=== PATIENT | female | born 2000 | race Caucasian/White ===

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

== ENCOUNTER 2019-01-21 14:46 | Emergency (ER) | payer MEDICAID ==
[~2019-01-21] VITALS: Ht 165.1 cm; Wt 95.3 kg
[2019-01-21 14:52] VITALS: BP_SYST 16; BP_SYST 162
[2019-01-21 15:54] LABS: BASOPHILS % (AUTO) 0.1 % (0.0-2.0); EOSINOPHILS # (AUTO) 0.1 K/uL (0.0-0.4); EOSINOPHILS % (AUTO) 0.7 % (0.0-4.0); HEMATOCRIT 37.2 % (36-48); LYMPHOCYTES % (AUTO) 10.6 % (20.5-51.5); MEAN CORPUSCULAR HEMOGLOBIN 21 pg (27-31); MEAN CORPUSCULAR HGB CONC 32 % (32-36); MEAN CORPUSCULAR VOLUME 66 fL (79.0-98.0); MONOCYTES # (AUTO) 0.7 K/uL (0.0-1.0); MONOCYTES % (AUTO) 7.2 % (1.7-9.3); NEUTROPHILS # (AUTO) 7.4 K/uL (1.8-7.7); NEUTROPHILS % (AUTO) 81.4 % (40.0-70.0); PLATELET COUNT (AUTO) 195 K/uL (130-430); RED BLOOD CELL COUNT(AUTO) 5.68 MIL/uL (4.2-6.2); RED CELL DISTRIBUTION WIDTH 15.1 % (9.0-15.0); WHITE BLOOD COUNT (AUTO) 9.1 K/uL (4.5-11.0)
[2019-01-21 16:38] LABS: CALCIUM 8.9 mg/dL (8.4-11.0)
[2019-01-21 17:26] LABS: ALBUMIN 3.8 g/dL (3.4-4.8); CREATININE 0.78 mg/dL (0.55-1.30); POTASSIUM 3.4 mmol/L (3.5-5.1); TOTAL BILIRUBIN 0.7 mg/dL (0.0-1.0)
[2019-01-21 17:49] LABS: BILIRUBIN,URINE 1+ (NEGATIVE); BLOOD, URINE NEGATIVE (NEGATIVE); CLARITY/URINE HAZY (CLEAR); COLOR,URINE YELLOW (YELLOW); GLUCOSE,URINE NEGATIVE (NEGATIVE); KETONES,URINE NEGATIVE (NEGATIVE); LEUKOCYTE ESTERASE ,URINE NEGATIVE (NEGATIVE); NITRITE, URINE NEGATIVE (NEGATIVE); PH,URINE 6.5 (5.0-8.0); PROTEIN URINE NEGATIVE (NEGATIVE); UROBILINOGEN,URINE 0.2 (0.2-1.0)
[2019-01-21] MEDS ORDERED: KETOROLAC TROMETHAMINE 30 MG VIAL IVP ONE (18:15)
[2019-01-21] MEDS ORDERED: LOPERAMIDE HCL 2 MG CAPSULE PO ONE (18:15)
[2019-01-21] MEDS ORDERED: ONDANSETRON HCL 4 MG/2 ML VIAL IVP ONE (18:15)
[2019-01-21] MEDS ORDERED: NACL 0.9% 1,000 ML IV ONE (18:15)
[2019-01-21 19:36] VITALS: BP_SYST 145
== END 2019-01-21 19:36 | disposition home or self-care (01) ==
LOC: SED 14:46
DX: J11.1 Influenza due to unidentified influenza virus with other respiratory manifestations (principal); R11.2 Nausea with vomiting, unspecified; R19.7 Diarrhea, unspecified; Z86.2 Personal history of diseases of the blood and blood-forming organs and certain disorders involving the immune mechanism
CPT/HCPCS: 36415; 80053; 81003; 81025; 85025; 86710; 96361; 96374; 96375; 99283; J1885; J2405; J7030

== ENCOUNTER 2020-07-23 17:45 | Emergency (ER) | payer MEDICAID ==
[~2020-07-23] VITALS: Ht 162.6 cm; Wt 74.8 kg
[2020-07-23 17:49] VITALS: BP_SYST 155
[2020-07-23 18:39] LABS: BILIRUBIN,URINE NEGATIVE (NEGATIVE); COLOR,URINE YELLOW (YELLOW); GLUCOSE,URINE NEGATIVE (NEGATIVE); KETONES,URINE NEGATIVE (NEGATIVE); LEUKOCYTE ESTERASE ,URINE NEGATIVE (NEGATIVE); NITRITE, URINE NEGATIVE (NEGATIVE); PH,URINE 5.5 (5.0-8.0); PROTEIN URINE NEGATIVE (NEGATIVE); UROBILINOGEN,URINE 0.2 (0.2-1.0)
[2020-07-23 18:51] LABS: BLOOD, URINE TRACE (NEGATIVE); CLARITY/URINE SLIGHTLY HAZY (CLEAR)
[2020-07-23 18:56] LABS: BACTERIA,URINE FEW /HPF (None Seen); MUCUS,URINE 2+ /LPF (None Seen); RBC,URINE 0-3 /HPF (0-3)
[2020-07-23 20:42] VITALS: BP_SYST 133
== END 2020-07-23 20:42 | disposition home or self-care (01) ==
LOC: SED 17:45
DX: R30.0 Dysuria (principal); R10.30 Lower abdominal pain, unspecified
CPT/HCPCS: 81000; 81025; 99283

== ENCOUNTER 2022-06-02 17:46 | Emergency (ER) | payer MEDICAID ==
[~2022-06-02] VITALS: Ht 162.6 cm; Wt 81.6 kg
[2022-06-02 18:09] VITALS: BP_SYST 120
--- NOTE | 2022-06-02 18:17 | NUR ---
Patient triaged and placed in waiting room. VSS and patient appears in no acute distress at this time. Accompanied by SELF, awaiting available bed, and MD notified of need for MSE.
--- NOTE | 2022-06-02 19:57 | NUR ---
Dr. Pedroza in triage room examining the patient.
[2022-06-02] MEDS ORDERED: ALBMDI INH (21:12)
[2022-06-02] MEDS ORDERED: PSEU120T65 PO (21:12)
[2022-06-02] MEDS ORDERED: ZIT250 PO (21:12)
[2022-06-02] MEDS ORDERED: PRED20TA PO (21:12)
[2022-06-02] MEDS ORDERED: FLUT16SP16 NS (21:12)
[2022-06-02 22:24] VITALS: BP_SYST 122
--- NOTE | 2022-06-02 22:24 | NUR ---
Patient given written and verbal discharge instructions and verbalizes understanding. ER MD discussed with patient the results and treatment provided. Patient in stable condition. ID arm band removed. Rx of ALBUTEROL, FLUTICASONE, PREDNISONE, PSEUDOEPHEDRINE, AND AZITHROMYCIN given. Patient educated on pain management and to follow up with PMD. Pain Scale 0/10. Opportunity for questions provided and answered.
== END 2022-06-02 22:24 | disposition home or self-care (01) ==
LOC: SED 17:46
DX: J42 Unspecified chronic bronchitis (principal); J32.9 Chronic sinusitis, unspecified; R09.81 Nasal congestion; R42 Dizziness and giddiness; H92.01 Otalgia, right ear; Z88.1 Allergy status to other antibiotic agents; Z79.899 Other long term (current) drug therapy
CPT/HCPCS: 71045; 99283

== ENCOUNTER 2022-06-10 16:21 | Emergency (ER) | payer MEDICAID ==
[~2022-06-10] VITALS: Ht 162.6 cm; Wt 81.6 kg
[~2022-06-10 16:21] MED LIST: ALBMDI INH; FLUT16SP16 NS; PRED20TA PO; PSEU120T65 PO; ZIT250 PO
[2022-06-10 16:36] VITALS: BP_SYST 121
--- NOTE | 2022-06-10 16:43 | NUR ---
triaged and sent back to wr. ambulatory with steady gait. vss.
--- NOTE | 2022-06-10 18:34 | NUR ---
Patient given written and verbal discharge instructions and verbalizes understanding. ER MD discussed with patient the results and treatment provided. Patient in stable condition. ID arm band removed. ded.
[2022-06-10 18:36] VITALS: BP_SYST 121
== END 2022-06-10 18:36 | disposition home or self-care (01) ==
LOC: SED 16:21
DX: Z00.00 Encounter for general adult medical examination without abnormal findings (principal); Z88.1 Allergy status to other antibiotic agents; Z79.899 Other long term (current) drug therapy
CPT/HCPCS: 99281

== ENCOUNTER 2023-09-01 14:14 | Emergency (ER) | payer MEDICAID ==
[~2023-09-01] VITALS: Ht 170.2 cm; Wt 86.2 kg
[2023-09-01 14:29] VITALS: BP_SYST 125; PULSE 110; RESP 18; TEMP 98.3; O2SAT 98
[2023-09-01 16:20] LABS: CALCIUM 8.4 mg/dL (8.4-11.0); CREATININE 0.69 mg/dL (0.55-1.30); POTASSIUM 4.1 mmol/L (3.5-5.1)
[2023-09-01 20:17] VITALS: BP_SYST 103; PULSE 80; RESP 18; TEMP 97.2; O2SAT 99
== END 2023-09-01 20:17 | disposition home or self-care (01) ==
LOC: SED 14:14
DX: M54.2 Cervicalgia (principal); R21 Rash and other nonspecific skin eruption; Z88.1 Allergy status to other antibiotic agents; Z79.899 Other long term (current) drug therapy; Z79.2 Long term (current) use of antibiotics
CPT/HCPCS: 99285; 70491; 80048; 36415; 81025; Q9967